=== PATIENT | male | born 2000 | race Caucasian/White ===

== ENCOUNTER 2025-04-26 21:27 | Emergency (ER) | payer OTHER, BC ==
[~2025-04-26] VITALS: Ht 175.3 cm; Wt 96.0 kg
[2025-04-26 22:00] VITALS: BP 141/108
== END 2025-04-26 22:01 | disposition home or self-care (01) ==
LOC: ED 21:27
DX: M24.412 Recurrent dislocation, left shoulder (principal)
CPT/HCPCS: 73030; 99283